=== PATIENT | male | born 1940 | race Caucasian/White ===

== ENCOUNTER 2023-01-14 05:35 | Day surgery (SDC) | payer OTHER ==
[~2023-01-14] VITALS: Ht 167.6 cm; Wt 78.9 kg
[2023-01-14] MEDS ORDERED: CEFAZOLIN SOD 2 GM in D5W 50 ML IV ONE (07:00)
[2023-01-14] MEDS ORDERED: LIDOCAINE/EPI MPF 1%1:200000 30 ML VIAL ONE (07:45)
[2023-01-14] MEDS ORDERED: LR 1,000 ML IV.SOLN IV ONE (07:45)
[2023-01-14] MEDS ORDERED: PROPOFOL 200MG/ 20ML VIAL (DIPRIVAN) IV ONE (07:45)
[2023-01-14] MEDS ORDERED: NEOSTIGMINE METHYLSULFATE 1 MG/ML, 10 ML VIAL ONE (07:45)
[2023-01-14] MEDS ORDERED: ONDANSETRON HCL 4 MG/2 ML VIAL ONE (07:45)
[2023-01-14] MEDS ORDERED: SUCCINYLCHOLINE CHLORIDE 20 MG/ML(QUELICIN) ONE (07:45)
[2023-01-14] MEDS ORDERED: SEVOFLURANE 15 MIN GAS INH ONE (07:45)
[2023-01-14] MEDS ORDERED: KETOROLAC TROMETHAMINE 30 MG VIAL ONE (07:45)
[2023-01-14] MEDS ORDERED: MIDAZOLAM HCL 5 MG/ML VIAL (VERSED) IV ONE (07:45)
[2023-01-14] MEDS ORDERED: GLYCOPYRROLATE 0.2 MG/ML VIAL ONE (07:45)
[2023-01-14] MEDS ORDERED: fentaNYL CITRATE/PF 100 MCG/2 ML AMP ONE (07:45)
[2023-01-14] MEDS ORDERED: NS IRRIG SOLN 1000 ML IR ONE (07:45)
[2023-01-14] MEDS ORDERED: ROCURONIUM BROMIDE 10 MG/ML (ZEMURON) ONE (07:45)
[2023-01-14] MEDS ORDERED: KETOROLAC TROMETHAMINE 30 MG VIAL IVP PRN (09:15)
[2023-01-14] MEDS ORDERED: HYDROmorphone 1 MG/ML INJ. CARTRIDGE IVP PRN ×2 (09:15→11:15)
[2023-01-14] MEDS ORDERED: IBUPROFEN 600 MG TABLET PO ONE (09:15)
[2023-01-14] MEDS ORDERED: METOCLOPRAMIDE HCL 10 MG/2 ML VIAL IVP PRN (09:15)
[2023-01-14] MEDS ORDERED: ONDANSETRON HCL 4 MG/2 ML VIAL IVP PRN ×2 (09:15→11:15)
[2023-01-14] MEDS ORDERED: HYDROcodone/ACETAMIN 5-325 MG TAB (NORCO/ VICODIN) PO PRN (11:15)
[2023-01-14] MEDS: ACETAMINOPHEN 500 MG TABLET PO SCH ×3 (11:30→22:16)
[2023-01-14] MEDS ORDERED: ROSU10TA2 PO (12:05)
[2023-01-14] MEDS ORDERED: LISI10TA29 PO (12:05)
[2023-01-14] MEDS ORDERED: METF-379 PO (12:05)
[2023-01-14] MEDS ORDERED: MULT-1089 PO (12:05)
[2023-01-14] MEDS ORDERED: ACET325T53 PO (12:05)
--- NOTE | 2023-01-14 12:20 | NUR ---
ADMIT FROM PACU Received report from Jaci TORIBIO, no s/s resp distress-noted SAO2 93% when pt encouraged to take a deep breath, placed pt on O2 2L via NC due to SAO2 drops to 85-88% when pt sleeps, No c/o pain or discomfort. Pt's and son at bedside, plan of care reviewed with family-all verbalized their understanding. Noted 5 small incisions with [place] bod, no bleeding noted. Pain management, skin and safety discussed with pt and family-tach back done. Side rails up x3, bed alarm on for safety. Call light within reach.
[2023-01-14 12:40] VITALS: BP_SYST 112
--- NOTE | 2023-01-14 13:45 | NUR ---
OR CALLED RE: MED REC Called and spoke with Marbella in OR office to have DR. Choudhary call me regarding the med rec-P.A. wrote to resume home medications-need to inform MD that nursing does not have access to recompile the med rec. Marbella stated she will let Dr. Choudhary know to call me at ext. [phone].
[2023-01-14 16:15] VITALS: BP_SYST 124
--- NOTE | 2023-01-14 16:42 | NUR ---
[facility] REC Pt now awake, no s/s resp distress, SAO2 95-96% on room air, c/o very slight pain 1-12/27, pt states it is tolerable. Pt's family at bedside, pt now eating soup. Pt given fresh ice water. Dr. Mukund Choudhary called regarding putting in the med rec-awaiting call back. All precautions remain in place. Call light within reach.
--- NOTE | 2023-01-14 17:40 | NUR ---
Spoke with Jennifer Roberts and informed her that the nurses no longer have access to reconcile the home medications. She stated she will try to reconcile the pt's medications.
[2023-01-14 19:00] VITALS: BP_SYST 108
--- NOTE | 2023-01-14 19:29 | NUR ---
CLOSING NOTE Pt resting quietly in bed with no s/s resp distress, no further c/o pain or discomfort. Family remains at bedside. Endorsed care to mold shifter nurse. All precautions remain in place. Call light within reach.
[2023-01-15 01:00] VITALS: BP_SYST 119
[2023-01-15] MEDS: ACETAMINOPHEN 500 MG TABLET PO SCH (06:29)
[2023-01-15 06:51] LABS: BASOPHILS % (AUTO) 0.4 % (0.0-2.0); EOSINOPHILS # (AUTO) 0.1 K/uL (0.0-0.4); EOSINOPHILS % (AUTO) 2.4 % (0.0-4.0); HEMATOCRIT 41.1 % (36-54); HEMOGLOBIN 13.8 g/dL (14.0-18.0); LYMPHOCYTES # (AUTO) 1.2 K/uL (1.0-5.5); LYMPHOCYTES % (AUTO) 20.4 % (20.5-51.5); MEAN CORPUSCULAR HEMOGLOBIN 30 pg (27-31); MEAN CORPUSCULAR HGB CONC 34 % (32-36); MEAN CORPUSCULAR VOLUME 88 fL (79.0-98.0); MONOCYTES # (AUTO) 0.5 K/uL (0.0-1.0); MONOCYTES % (AUTO) 9.2 % (1.7-9.3); NEUTROPHILS % (AUTO) 67.6 % (40.0-70.0); PLATELET COUNT (AUTO) 192 K/uL (130-430); RED BLOOD CELL COUNT(AUTO) 4.68 MIL/uL (4.2-6.2); RED CELL DISTRIBUTION WIDTH 14.8 % (9.0-15.0); WHITE BLOOD COUNT (AUTO) 5.9 K/uL (4.8-10.8)
[2023-01-15 07:11] LABS: ANION GAP 10 (5-15); CALCIUM 8.4 mg/dL (8.4-11.0); CHLORIDE 103 mmol/L (98-107); CREATININE 1.01 mg/dL (0.55-1.30); GLUCOSE 112 mg/dL (70-99); UREA NITROGEN, BLOOD 15 mg/dL (8-21)
[2023-01-15 08:00] VITALS: BP_SYST 124
[2023-01-15] MEDS ORDERED: metFORMIN HCL 500 MG TABLET PO SCH (08:00)
[2023-01-15] MEDS ORDERED: ROSUVASTATIN CALCIUM 5 MG/TAB (CRESTOR) PO SCH (09:00)
[2023-01-15] MEDS ORDERED: MULTIVITAMINS TAB 1 TABLET PO SCH (09:00)
[2023-01-15] MEDS ORDERED: LISINOPRIL 10 MG TABLET (PRINIVIL) PO SCH (09:00)
[2023-01-15] MEDS ORDERED: ATORVASTATIN 20 MG TABLET PO SCH (09:00)
[2023-01-15 09:42] VITALS: BP_SYST 124
--- NOTE | 2023-01-15 09:59 | NUR ---
pt a&o, d/c to home via wheelchair with family. vss, no c/o pain. d/c instructions given. piv removed.
== END 2023-01-15 09:59 | disposition home health service (06) ==
LOC: SDS 05:35 → SMU 05:35 → SDS 01-15 09:59
PROVIDERS: ATTEND Surgery
DX: K40.90 Unilateral inguinal hernia, without obstruction or gangrene, not specified as recurrent (principal); I10 Essential (primary) hypertension; E11.9 Type 2 diabetes mellitus without complications; E78.5 Hyperlipidemia, unspecified; Z79.84 Long term (current) use of oral hypoglycemic drugs; Z79.899 Other long term (current) drug therapy; Z20.822 Contact with and (suspected) exposure to COVID-19
CPT/HCPCS: 87081; 49650; 80048; 82962; 85025; 36415; 87426; J0690; J3490; J1885; J2405; J2704; J0330; J3010; J7060; J7120; C1727; C1781; J2710; S2900; J2250